=== PATIENT | male | born 1985 | race Caucasian/White ===

== ENCOUNTER 2021-08-28 12:51 | Emergency (ER) | payer OTHER ==
[2021-08-28 12:57] VITALS: BP 141/92; PULSE 83; TEMP 98.6; BMI 29.0
[2021-08-28 13:51] LABS: EPI CELLS 1 /uL (0-25.1); HYALINE CASTS 0 /uL (0-3.1); PH,URINE 8.5 (5.0-8.0); URINE APPEARANCE TURBID; URINE BACTERIA 1 /uL (0-1359); URINE BILIRUBIN NEGATIVE (NEGATIVE); URINE COLOR ORANGE; URINE GLUCOSE (UA) NEGATIVE (NEGATIVE); URINE KETONE NEGATIVE (NEGATIVE); URINE LEUK ESTERASE 1+ (NEGATIVE); URINE NITRITE NEGATIVE (NEGATIVE); URINE PROTEIN 2+ (NEGATIVE); URINE RBC 15200 /uL (0-23.9); URINE UROBILINOGEN 0.2 mg/dL (0.2-1.0); URINE WBC 27 /uL (0-25.8)
== END 2021-08-28 17:13 | disposition home or self-care (01) ==
LOC: JERFT 12:51
DX: R31.21 Asymptomatic microscopic hematuria (principal)
CPT/HCPCS: 36415; 76775-TC; 81003; 87086; 87491; 87591; 99284-25

== ENCOUNTER 2021-10-06 00:53 | Emergency (ER) | payer OTHER ==
[2021-10-06 01:33] VITALS: BP 130/75; PULSE 94; TEMP 99.4; BMI 23.3
[2021-10-06] MEDS ORDERED: ACETAMINOPHEN 500 MG TABLET (FP) PO ONE (02:13)
[2021-10-06] MEDS ORDERED: ACETAMINOPHEN 325 MG TABLET (FP) ONE (02:40)
[2021-10-06 04:49] LABS: HIV INTERPRETATION NEGATIVE (NEGATIVE)
== END 2021-10-06 04:04 | disposition home or self-care (01) ==
LOC: JER 00:53
PROC: 3E023GC Introduction of Other Therapeutic Substance into Muscle, Percutaneous Approach (ICD-10-PCS; principal; 2021-10-06)
DX: M79.10 Myalgia, unspecified site (principal); Z11.52 Encounter for screening for COVID-19
CPT/HCPCS: 36415; 86780; 87389; 87491; 87591; 87804; 99284-25; C9803; U0003; U0005